=== PATIENT | female | born 1955 | race African-American/Black ===

== ENCOUNTER 2019-01-28 22:26 | Emergency (ER) | payer MEDICAID ==
[~2019-01-28] VITALS: Ht 170.2 cm; Wt 56.7 kg
[~2019-01-28 22:26] MED LIST: PRED5TAB48 PO
--- NOTE | 2019-01-28 23:00 | NUR ---
PT BIBSELAudelia C/O "CONGESTION,SOB SINCE SATURDAY. INHALER NOT HELPING" +COUGH. -N/V -DIZZY. PT AOX4. NAD NOTED. PT ON MONITOR IN BED 10. WILL CONTINUE TO MONITOR.
--- NOTE | 2019-01-28 23:04 | NUR ---
RT CALLED FOR BREATHING TX PER MD ORDER
[2019-01-28] MEDS ORDERED: IPRATROPIUM NEB FS 0.5 MG/2.5 ML AMPUL.NEB ONE (23:07)
[2019-01-28] MEDS ORDERED: ALBUTEROL FS 2.5 MG/0.5 ML VIAL.NEB ONE (23:07)
[2019-01-28 23:09] VITALS: BP 110/86
[2019-01-28] MEDS ORDERED: IPRATROPIUM NEB FS 0.5 MG/2.5 ML AMPUL.NEB NEB ONE (23:30)
[2019-01-28] MEDS ORDERED: predniSONE 20 MG TABLET PO ONE (23:30)
[2019-01-28] MEDS ORDERED: ALBUTEROL FS 2.5 MG/0.5 ML VIAL.NEB NEB ONE (23:30)
[2019-01-28] MEDS ORDERED: predniSONE 20 MG TABLET ONE (23:36)
--- NOTE | 2019-01-28 23:41 | NUR ---
RADIOLOGY AT BEDSIDE FOR XRAY
--- NOTE | 2019-01-29 00:20 | NUR ---
Patient discharged to home in stable condition. Written and verbal after care instructions given. Patient verbalizes understanding of instruction. PT AMBULATORY WITH STEADY GAIT.
== END 2019-01-29 00:27 | disposition home or self-care (01) ==
LOC: ER 22:26
DX: J45.909 Unspecified asthma, uncomplicated (principal)
CPT/HCPCS: 71045; 94640; 99283; J7512